=== PATIENT | female | born 1970 | race Caucasian/White ===

== ENCOUNTER 2022-07-14 12:58 | Inpatient (IN) | payer OTHER ==
[~2022-07-14] VITALS: Ht 165.1 cm; Wt 66.8 kg
[~2022-07-14 12:58] MED LIST: ASPI-1450 PO; BENZ-70 PO; BUDE10.27 IH; HYDR25TA2 PO; IPRA4AER IH; PANT-31 PO; PRED-554 PO
[2022-07-14] MEDS ORDERED: VANCOMYCIN 1GM/WATER(PEG/NADA) 200 ML IV ONE (13:45)
[2022-07-14] MEDS ORDERED: SODIUM CHLORIDE 0.9% 1,000 ML IV ONE (13:45)
[2022-07-14] MEDS ORDERED: HYDR-3831 PO (13:47)
[2022-07-14] MEDS ORDERED: FLUT1BLS9 IH (13:47)
[2022-07-14] MEDS ORDERED: VANCOMYCIN HCL 1 GM in DEXTROSE 5%-WATER 250 ML IV ONE (14:00)
[2022-07-14] MEDS ORDERED: MAGNESIUM HYDROXIDE SUSPENSION 30 ML UDCUP PO PRN (14:45)
[2022-07-14] MEDS: MORPHINE SULFATE 2 MG/ML SYRINGE IVP PRN ×2 (14:45→23:12)
[2022-07-14] MEDS ORDERED: ALBUTEROL SULFATE 2.5 MG/0.5 ML NEB SOLUTION NEB PRN (14:45)
[2022-07-14 15:22] LABS: BASOPHILS % (AUTO) 0.3 % (0.0-2.0); EOSINOPHILS % (AUTO) 1.2 % (1.0-6.0); HEMATOCRIT 37.3 % (36-46); HEMOGLOBIN 12.2 g/dL (12.0-16.0); LYMPHOCYTES # (AUTO) 1.4 K/uL (1.0-4.8); LYMPHOCYTES % (AUTO) 16.1 % (22.0-44.0); MEAN CORPUSCULAR HEMOGLOBIN 28.2 pg (26.0-34.0); MEAN CORPUSCULAR HGB CONC 32.6 G/dL (31.0-37.0); MEAN CORPUSCULAR VOLUME 86 fL (80-100); MONOCYTES # (AUTO) 1.1 K/uL (0.1-1.0); MONOCYTES % (AUTO) 13.3 % (2.0-9.0); NEUTROPHILS % (AUTO) 69.1 % (40.0-70.0); PLATELET COUNT (AUTO) 190 K/uL (150-450); RED BLOOD CELL COUNT(AUTO) 4.32 MIL/uL (4.00-5.20); RED CELL DISTRIBUTION WIDTH 15.8 % (11.5-14.5)
[2022-07-14 15:42] LABS: CALCIUM, TOTAL 8.4 mg/dL (8.8-10.5); CREATININE 1.03 mg/dL (0.60-1.30); POTASSIUM 3.4 mmol/L (3.5-5.1)
[2022-07-14 15:47] LABS: ALBUMIN 3.3 g/dL (3.4-5.0); BILIRUBIN,TOTAL 0.4 mg/dL (0.1-1.0); TOTAL PROTEIN, SERUM 6.7 g/dL (6.4-8.2)
[2022-07-14 15:51] LABS: LACTIC ACID 1.1 mmol/L (0.4-2.0)
[2022-07-14] MEDS: HYDROCODONE/ACETAMINOPHEN 5-325 MG TABLET PO PRN ×2 (15:51→20:05)
[2022-07-14] MEDS ORDERED: SODIUM CHLORIDE 0.9% 100 ML ONE (16:07)
[2022-07-14] MEDS ORDERED: IOHEXOL 350 MG/ML 100 ML VIAL ONE (16:08)
[2022-07-14 18:10] VITALS: BP 154/101
[2022-07-14] MEDS ORDERED: SODIUM CHLORIDE 0.9% 500 ML IV ONE (18:17)
[2022-07-14] MEDS: PIPERACILLIN/TAZO 3.375 GM/D5W 50 ML IV SCH ×2 (18:33→23:12)
[2022-07-14 20:00] VITALS: BP 169/99
[2022-07-14] MEDS: DOCUSATE SODIUM 100 MG CAPSULE PO SCH (20:03)
[2022-07-15] MEDS: HYDROCODONE/ACETAMINOPHEN 5-325 MG TABLET PO PRN ×5 (02:27→21:34)
[2022-07-15 04:53] VITALS: BP 135/92
[2022-07-15] MEDS: PIPERACILLIN/TAZO 3.375 GM/D5W 50 ML IV SCH ×4 (05:33→23:32)
[2022-07-15] MEDS: MORPHINE SULFATE 2 MG/ML SYRINGE IVP PRN ×2 (05:33→23:39)
[2022-07-15 07:07] LABS: ANION GAP 9 mmol/L (8-16); CALCIUM, TOTAL 8.1 mg/dL (8.8-10.5); CARBON DIOXIDE 28 mmol/L (22-29); CHLORIDE 102 mmol/L (98-107); CREATININE 0.77 mg/dL (0.60-1.30); GLUCOSE,RANDOM 101 mg/dL (70-110); POTASSIUM 3.5 mmol/L (3.5-5.1); SODIUM SERUM 139 mmol/L (136-145); UREA NITROGEN, BLOOD 5 mg/dL (7-18)
[2022-07-15 07:08] LABS: GLOMERULAR FILTR. RATE CALC > 60 mL/min (>60)
[2022-07-15 08:00] VITALS: BP_SYST 155; BP_SYST 156; BP_DIAS 84; BP_DIAS 97
[2022-07-15] MEDS: DOCUSATE SODIUM 100 MG CAPSULE PO SCH ×2 (08:44→19:49)
[2022-07-15] MEDS: VANCOMYCIN HCL 750 MG in DEXTROSE 5%-WATER 250 ML IV SCH ×2 (08:44→19:49)
[2022-07-15] MEDS: FAMOTIDINE 20 MG TABLET PO SCH (08:44)
[2022-07-15] MEDS: ONDANSETRON HCL 4 MG/2 ML VIAL IVP PRN (11:03)
[2022-07-15 12:24] LABS: C-REACTIVE PROTEIN QUANT 12.19 mg/dL (0.00-0.30)
[2022-07-15] MEDS ORDERED: GADOTERATE MEGLUMINE 10 MMOL/20 ML VIAL IVP ONE (14:12)
[2022-07-15] MEDS: CLINDAMYCIN 900 MG/D5% WATER 50 ML IV SCH ×2 (14:44→21:34)
[2022-07-15 16:00] VITALS: BP 155/90
[2022-07-15 19:40] VITALS: BP 131/78
[2022-07-15] MEDS: ZOLPIDEM TARTRATE 5 MG TABLET PO PRN (19:49)
[2022-07-16 04:27] VITALS: BP 140/77
[2022-07-16] MEDS: HYDROCODONE/ACETAMINOPHEN 5-325 MG TABLET PO PRN ×5 (04:36→23:05)
[2022-07-16] MEDS: CLINDAMYCIN 900 MG/D5% WATER 50 ML IV SCH ×3 (04:36→20:44)
[2022-07-16] MEDS: PIPERACILLIN/TAZO 3.375 GM/D5W 50 ML IV SCH ×4 (05:45→23:05)
[2022-07-16 07:06] LABS: PROTHROMBIN TIME 10.3 SEC (9.4-11.6)
[2022-07-16 07:09] LABS: BASOPHILS % (AUTO) 0.5 % (0.0-2.0); EOSINOPHILS % (AUTO) 1.7 % (1.0-6.0); HEMATOCRIT 30.8 % (36-46); HEMOGLOBIN 10.3 g/dL (12.0-16.0); LYMPHOCYTES # (AUTO) 1.5 K/uL (1.0-4.8); LYMPHOCYTES % (AUTO) 18.9 % (22.0-44.0); MEAN CORPUSCULAR HEMOGLOBIN 28.7 pg (26.0-34.0); MEAN CORPUSCULAR HGB CONC 33.2 G/dL (31.0-37.0); MEAN CORPUSCULAR VOLUME 86 fL (80-100); MONOCYTES # (AUTO) 1.2 K/uL (0.1-1.0); MONOCYTES % (AUTO) 14.5 % (2.0-9.0); NEUTROPHILS # (AUTO) 5.2 K/uL (1.8-7.7); NEUTROPHILS % (AUTO) 64.4 % (40.0-70.0); PLATELET COUNT (AUTO) 211 K/uL (150-450); RED BLOOD CELL COUNT(AUTO) 3.58 MIL/uL (4.00-5.20); RED CELL DISTRIBUTION WIDTH 16.2 % (11.5-14.5)
[2022-07-16 07:27] LABS: ANION GAP 3 mmol/L (8-16); CALCIUM, TOTAL 8.4 mg/dL (8.8-10.5); CARBON DIOXIDE 31 mmol/L (22-29); CHLORIDE 100 mmol/L (98-107); CREATININE 0.95 mg/dL (0.60-1.30); GLUCOSE,RANDOM 111 mg/dL (70-110); POTASSIUM 3.7 mmol/L (3.5-5.1); SODIUM SERUM 134 mmol/L (136-145); UREA NITROGEN, BLOOD 6 mg/dL (7-18); VANCOMYCIN,RANDOM 7.8 mcg/mL (25.0-50.0)
[2022-07-16 07:30] LABS: GLOMERULAR FILTR. RATE CALC > 60 mL/min (>60)
[2022-07-16 07:43] VITALS: BP 119/71
[2022-07-16] MEDS: VANCOMYCIN HCL 750 MG in DEXTROSE 5%-WATER 250 ML IV SCH ×2 (08:28→15:44)
[2022-07-16] MEDS: DOCUSATE SODIUM 100 MG CAPSULE PO SCH ×2 (08:29→20:45)
[2022-07-16] MEDS: FAMOTIDINE 20 MG TABLET PO SCH (08:29)
[2022-07-16 15:24] VITALS: BP 122/74
[2022-07-16] MEDS: ONDANSETRON HCL 4 MG/2 ML VIAL IVP PRN (15:50)
[2022-07-16 19:25] VITALS: BP 143/88
[2022-07-16] MEDS: ZOLPIDEM TARTRATE 5 MG TABLET PO PRN (20:44)
[2022-07-17] MEDS: VANCOMYCIN HCL 750 MG in DEXTROSE 5%-WATER 250 ML IV SCH ×4 (00:07→23:24)
[2022-07-17] MEDS: HYDROCODONE/ACETAMINOPHEN 5-325 MG TABLET PO PRN ×5 (03:18→23:29)
[2022-07-17] MEDS: CLINDAMYCIN 900 MG/D5% WATER 50 ML IV SCH ×2 (04:26→13:05)
[2022-07-17 05:24] VITALS: BP 121/70
[2022-07-17] MEDS: PIPERACILLIN/TAZO 3.375 GM/D5W 50 ML IV SCH ×4 (05:35→23:24)
[2022-07-17 05:52] LABS: ANION GAP 1 mmol/L (8-16); C-REACTIVE PROTEIN QUANT 9.68 mg/dL (0.00-0.30); CALCIUM, TOTAL 8.4 mg/dL (8.8-10.5); CARBON DIOXIDE 33 mmol/L (22-29); CHLORIDE 102 mmol/L (98-107); CREATININE 0.93 mg/dL (0.60-1.30); GLUCOSE,RANDOM 105 mg/dL (70-110); POTASSIUM 3.7 mmol/L (3.5-5.1); SODIUM SERUM 136 mmol/L (136-145); UREA NITROGEN, BLOOD 7 mg/dL (7-18)
[2022-07-17 05:58] LABS: GLOMERULAR FILTR. RATE CALC > 60 mL/min (>60)
[2022-07-17] MEDS: FAMOTIDINE 20 MG TABLET PO SCH (08:13)
[2022-07-17] MEDS: DOCUSATE SODIUM 100 MG CAPSULE PO SCH ×2 (08:14→20:09)
[2022-07-17] MEDS ORDERED: SODIUM CHLORIDE 0.9% 250 ML IV ONE (10:59)
[2022-07-17 15:57] VITALS: BP 136/76
[2022-07-17 19:40] VITALS: BP 130/78
[2022-07-17] MEDS: ETHYL ALCOHOL 62% ANTISEPTIC NASAL SANITIZER 0.6 ML AMPUL NASAL SCH (20:09)
[2022-07-18] MEDS ORDERED: SODIUM CHLORIDE 0.9% 250 ML IV ONE (04:05)
[2022-07-18] MEDS: HYDROCODONE/ACETAMINOPHEN 5-325 MG TABLET PO PRN ×4 (04:08→20:08)
[2022-07-18 04:20] VITALS: BP 140/83
[2022-07-18] MEDS: PIPERACILLIN/TAZO 3.375 GM/D5W 50 ML IV SCH ×4 (05:13→23:37)
[2022-07-18 07:04] LABS: ANION GAP 4 mmol/L (8-16); C-REACTIVE PROTEIN QUANT 5.42 mg/dL (0.00-0.30); CALCIUM, TOTAL 8.6 mg/dL (8.8-10.5); CARBON DIOXIDE 31 mmol/L (22-29); CHLORIDE 103 mmol/L (98-107); CREATININE 0.92 mg/dL (0.60-1.30); GLUCOSE,RANDOM 93 mg/dL (70-110); SODIUM SERUM 138 mmol/L (136-145); UREA NITROGEN, BLOOD 9 mg/dL (7-18); VANCOMYCIN,RANDOM 21.1 mcg/mL (25.0-50.0)
[2022-07-18 07:05] LABS: GLOMERULAR FILTR. RATE CALC > 60 mL/min (>60)
[2022-07-18 07:37] VITALS: BP 126/87
[2022-07-18] MEDS: FAMOTIDINE 20 MG TABLET PO SCH (08:13)
[2022-07-18] MEDS: ETHYL ALCOHOL 62% ANTISEPTIC NASAL SANITIZER 0.6 ML AMPUL NASAL SCH ×2 (08:13→20:04)
[2022-07-18] MEDS: DOCUSATE SODIUM 100 MG CAPSULE PO SCH ×2 (08:13→20:04)
[2022-07-18] MEDS: VANCOMYCIN HCL 750 MG in DEXTROSE 5%-WATER 250 ML IV SCH ×2 (08:15→15:05)
[2022-07-18] MEDS ORDERED: 0.9% SODIUM CHLORIDE 5 ML NEB SOLUTION NEB ONE (15:17)
[2022-07-18 15:23] VITALS: BP 170/99
[2022-07-18] MEDS ORDERED: SODIUM CHLORIDE 0.9% 500 ML IV ONE ×2 (17:39→22:31)
[2022-07-18 19:15] VITALS: BP 152/86
[2022-07-19] MEDS: VANCOMYCIN HCL 750 MG in DEXTROSE 5%-WATER 250 ML IV SCH ×3 (00:18→15:49)
[2022-07-19] MEDS: ZOLPIDEM TARTRATE 5 MG TABLET PO PRN ×2 (00:57→20:07)
[2022-07-19 05:10] VITALS: BP 165/103
[2022-07-19] MEDS: PIPERACILLIN/TAZO 3.375 GM/D5W 50 ML IV SCH ×4 (06:06→23:12)
[2022-07-19] MEDS: HYDROCODONE/ACETAMINOPHEN 5-325 MG TABLET PO PRN ×4 (06:07→15:51)
[2022-07-19 07:16] LABS: ANION GAP 5 mmol/L (8-16); CALCIUM, TOTAL 8.7 mg/dL (8.8-10.5); CARBON DIOXIDE 27 mmol/L (22-29); CHLORIDE 103 mmol/L (98-107); CREATININE 0.81 mg/dL (0.60-1.30); GLOMERULAR FILTR. RATE CALC > 60 mL/min (>60); GLUCOSE,RANDOM 100 mg/dL (70-110); POTASSIUM 3.7 mmol/L (3.5-5.1); SODIUM SERUM 135 mmol/L (136-145); UREA NITROGEN, BLOOD 7 mg/dL (7-18)
[2022-07-19 07:30] VITALS: BP 176/110
[2022-07-19] MEDS: ETHYL ALCOHOL 62% ANTISEPTIC NASAL SANITIZER 0.6 ML AMPUL NASAL SCH ×2 (08:24→20:07)
[2022-07-19] MEDS: FAMOTIDINE 20 MG TABLET PO SCH (08:24)
[2022-07-19] MEDS: DOCUSATE SODIUM 100 MG CAPSULE PO SCH ×2 (08:25→20:07)
[2022-07-19] MEDS: AmLODIPine BESYLATE 5 MG TABLET PO SCH (11:10)
[2022-07-19 15:18] VITALS: BP 149/90
[2022-07-19 19:50] VITALS: BP 139/89
[2022-07-20] MEDS: VANCOMYCIN HCL 750 MG in DEXTROSE 5%-WATER 250 ML IV SCH ×3 (00:12→16:30)
[2022-07-20] MEDS: HYDROCODONE/ACETAMINOPHEN 5-325 MG TABLET PO PRN ×3 (03:22→19:55)
[2022-07-20 05:00] VITALS: BP 161/102
[2022-07-20] MEDS: PIPERACILLIN/TAZO 3.375 GM/D5W 50 ML IV SCH ×4 (05:49→23:39)
[2022-07-20 06:22] LABS: ANION GAP 4 mmol/L (8-16); C-REACTIVE PROTEIN QUANT 1.94 mg/dL (0.00-0.30); CALCIUM, TOTAL 8.7 mg/dL (8.8-10.5); CARBON DIOXIDE 29 mmol/L (22-29); CHLORIDE 103 mmol/L (98-107); CREATININE 0.87 mg/dL (0.60-1.30); GLUCOSE,RANDOM 96 mg/dL (70-110); POTASSIUM 3.9 mmol/L (3.5-5.1); SODIUM SERUM 136 mmol/L (136-145); UREA NITROGEN, BLOOD 11 mg/dL (7-18)
[2022-07-20 06:24] LABS: GLOMERULAR FILTR. RATE CALC > 60 mL/min (>60)
[2022-07-20 08:11] VITALS: BP 156/96
[2022-07-20] MEDS: FAMOTIDINE 20 MG TABLET PO SCH (08:17)
[2022-07-20] MEDS: ETHYL ALCOHOL 62% ANTISEPTIC NASAL SANITIZER 0.6 ML AMPUL NASAL SCH ×2 (08:17→19:55)
[2022-07-20] MEDS: AmLODIPine BESYLATE 5 MG TABLET PO SCH (08:17)
[2022-07-20] MEDS: DOCUSATE SODIUM 100 MG CAPSULE PO SCH ×2 (08:18→19:55)
[2022-07-20] MEDS: ACETAMINOPHEN 325 MG TABLET PO PRN (08:19)
[2022-07-20] MEDS ORDERED: SODIUM CHLORIDE 0.9% 250 ML IV ONE (08:26)
[2022-07-20] MEDS: ONDANSETRON HCL 4 MG/2 ML VIAL IVP PRN (15:04)
[2022-07-20 16:02] VITALS: BP 137/87
[2022-07-20 19:47] VITALS: BP 160/96
[2022-07-20] MEDS: ZOLPIDEM TARTRATE 5 MG TABLET PO PRN (23:43)
[2022-07-21] MEDS: VANCOMYCIN HCL 750 MG in DEXTROSE 5%-WATER 250 ML IV SCH ×2 (00:26→08:37)
[2022-07-21] MEDS: ACETAMINOPHEN 325 MG TABLET PO PRN (03:09)
[2022-07-21 05:16] VITALS: BP 139/92
[2022-07-21] MEDS: PIPERACILLIN/TAZO 3.375 GM/D5W 50 ML IV SCH (05:43)
[2022-07-21 07:12] LABS: ANION GAP 5 mmol/L (8-16); CALCIUM, TOTAL 8.2 mg/dL (8.8-10.5); CARBON DIOXIDE 26 mmol/L (22-29); CHLORIDE 106 mmol/L (98-107); CREATININE 0.83 mg/dL (0.60-1.30); GLUCOSE,RANDOM 88 mg/dL (70-110); POTASSIUM 3.4 mmol/L (3.5-5.1); SODIUM SERUM 137 mmol/L (136-145); UREA NITROGEN, BLOOD 10 mg/dL (7-18); VANCOMYCIN,RANDOM 21.6 mcg/mL (25.0-50.0)
[2022-07-21 07:13] LABS: GLOMERULAR FILTR. RATE CALC > 60 mL/min (>60)
[2022-07-21 07:31] VITALS: BP 137/92
[2022-07-21] MEDS: ETHYL ALCOHOL 62% ANTISEPTIC NASAL SANITIZER 0.6 ML AMPUL NASAL SCH (08:37)
[2022-07-21] MEDS: FAMOTIDINE 20 MG TABLET PO SCH (08:37)
[2022-07-21] MEDS: AmLODIPine BESYLATE 5 MG TABLET PO SCH (08:37)
[2022-07-21] MEDS: DOCUSATE SODIUM 100 MG CAPSULE PO SCH (08:44)
[2022-07-21] MEDS ORDERED: ACET-784 PO (11:59)
== END 2022-07-21 14:55 | DRG 603 ==
LOC: EMS 12:58 → 6S 16:54
PROVIDERS: ADMIT Internal Medicine; ATTEND Internal Medicine
DX: L03.211 Cellulitis of face (principal); J01.40 Acute pansinusitis, unspecified; J45.909 Unspecified asthma, uncomplicated; J34.0 Abscess, furuncle and carbuncle of nose; I10 Essential (primary) hypertension; Z79.899 Other long term (current) drug therapy; Z88.8 Allergy status to other drugs, medicaments and biological substances; Y92.89 Other specified places as the place of occurrence of the external cause; Z79.82 Long term (current) use of aspirin; A49.02 Methicillin resistant Staphylococcus aureus infection, unspecified site; T36.8X5A Adverse effect of other systemic antibiotics, initial encounter
CPT/HCPCS: 70487; 70543; 80048; 80053; 80202; 83605; 84145; 84703; 85025; 85610; 86140; 87040; 87070; 87081; 87186; 87205; 93971; 94640; 99285; J2270; J2405; J2543; J3370; J3490; J7030; J7040; J7050; J7060; Q9967

== ENCOUNTER 2025-01-27 00:14 | Inpatient (IN) | payer OTHER ==
[~2025-01-27] VITALS: Ht 162.6 cm; Wt 100.4 kg
[~2025-01-27 00:14] MED LIST changes: +ACET-784 PO; +BENZ-227 PO; -BENZ-70 PO; -BUDE10.27 IH; +FLUT1BLS19 IH; +HYDR-3831 PO; -PRED-554 PO
[2025-01-27 01:24] LABS: ANION GAP 9 mmol/L (8-16); CARBON DIOXIDE 30 mmol/L (22-29); CHLORIDE 98 mmol/L (98-107); GLUCOSE,RANDOM 98 mg/dL (70-110); POTASSIUM 3.3 mmol/L (3.5-5.1); SODIUM SERUM 137 mmol/L (136-145); UREA NITROGEN, BLOOD 16 mg/dL (7-18)
[2025-01-27 01:25] LABS: CALCIUM, TOTAL 8.4 mg/dL (8.8-10.5); GLOMERULAR FILTR. RATE CALC > 60 mL/min (>60)
[2025-01-27 01:31] LABS: BASOPHILS % (AUTO) 0.5 % (0.0-2.0); EOSINOPHILS % (AUTO) 9.9 % (1.0-6.0); HEMATOCRIT 38.9 % (36-46); HEMOGLOBIN 12.8 g/dL (12.0-16.0); LYMPHOCYTES # (AUTO) 2.1 K/uL (1.0-4.8); LYMPHOCYTES % (AUTO) 26.2 % (22.0-44.0); MEAN CORPUSCULAR HEMOGLOBIN 26.5 pg (26.0-34.0); MEAN CORPUSCULAR HGB CONC 32.8 G/dL (31.0-37.0); MEAN CORPUSCULAR VOLUME 81 fL (80-100); MONOCYTES # (AUTO) 0.7 K/uL (0.1-1.0); MONOCYTES % (AUTO) 8.9 % (2.0-9.0); NEUTROPHILS # (AUTO) 4.4 K/uL (1.8-7.7); NEUTROPHILS % (AUTO) 54.5 % (40.0-70.0); PLATELET COUNT (AUTO) 323 K/uL (150-450); RED BLOOD CELL COUNT(AUTO) 4.83 MIL/uL (4.00-5.20); RED CELL DISTRIBUTION WIDTH 14.7 % (11.5-14.5); WHITE BLOOD COUNT (AUTO) 8.1 K/uL (4.5-11.0)
[2025-01-27] MEDS ORDERED: ONDANSETRON HCL 4 MG/2 ML VIAL IVP PRN (02:30)
[2025-01-27] MEDS ORDERED: ALBUTEROL SULFATE 2.5 MG/0.5 ML NEB SOLUTION NEB PRN (02:30)
[2025-01-27] MEDS ORDERED: IPRATROPIUM BROMIDE 0.5 MG/2.5 ML NEB SOLUTION NEB PRN (02:30)
[2025-01-27] MEDS: POTASSIUM CHLORIDE 20 MEQ ER TABLET PO ONE (03:10)
[2025-01-27 06:46] VITALS: BP 149/90; PULSE 72; RESP 20; TEMP 98.2; O2SAT 96
[2025-01-27 08:00] VITALS: BP 131/82; PULSE 69; RESP 16; TEMP 98.4; O2SAT 97
[2025-01-27] MEDS: HEPARIN SODIUM,PORCINE 5,000 UNITS/ML VIAL SQ SCH (09:35)
[2025-01-27 12:00] VITALS: BP 135/79; PULSE 71; RESP 16; TEMP 98.1; O2SAT 98
[2025-01-27] MEDS ORDERED: SODIUM CHLORIDE 3% 15 ML NEB SOLUTION NEB ONE ×2 (14:21→23:58)
[2025-01-27 16:00] VITALS: BP 132/102; PULSE 71; RESP 16; TEMP 98.6; O2SAT 95
[2025-01-27] MEDS: ACETAMINOPHEN 325 MG TABLET PO PRN (19:03)
[2025-01-27 19:46] LABS: MTB PCR w/Rif. Resistance-SPUT NOT DETECTED (Not Detectd)
[2025-01-27 20:00] VITALS: BP 125/77; PULSE 70; RESP 18; TEMP 98.2; O2SAT 97
[2025-01-28] VITALS: BP 121/66; PULSE 68; RESP 18; TEMP 98.1; O2SAT 97
[2025-01-28] MEDS ORDERED: POTASSIUM CHL 10 MEQ/WATER 50 ML IV PRN (01:15)
[2025-01-28] MEDS: POTASSIUM CHLORIDE 20 MEQ ER TABLET PO PRN (01:18)
[2025-01-28 04:00] VITALS: BP 131/81; PULSE 64; RESP 18; TEMP 97.9; O2SAT 98
[2025-01-28 06:47] LABS: ANION GAP 10 mmol/L (8-16); CALCIUM, TOTAL 8.3 mg/dL (8.8-10.5); CARBON DIOXIDE 28 mmol/L (22-29); CHLORIDE 104 mmol/L (98-107); CREATININE 0.84 mg/dL (0.60-1.30); GLOMERULAR FILTR. RATE CALC > 60 mL/min (>60); GLUCOSE,RANDOM 117 mg/dL (70-110); POTASSIUM 3.3 mmol/L (3.5-5.1); SODIUM SERUM 142 mmol/L (136-145); UREA NITROGEN, BLOOD 18 mg/dL (7-18)
[2025-01-28 06:48] LABS: BASOPHILS % (AUTO) 1.1 % (0.0-2.0); EOSINOPHILS % (AUTO) 13.6 % (1.0-6.0); HEMATOCRIT 36.9 % (36-46); HEMOGLOBIN 12.5 g/dL (12.0-16.0); LYMPHOCYTES # (AUTO) 1.9 K/uL (1.0-4.8); LYMPHOCYTES % (AUTO) 27.2 % (22.0-44.0); MEAN CORPUSCULAR HEMOGLOBIN 27.5 pg (26.0-34.0); MEAN CORPUSCULAR HGB CONC 33.8 G/dL (31.0-37.0); MEAN CORPUSCULAR VOLUME 81 fL (80-100); MONOCYTES # (AUTO) 0.8 K/uL (0.1-1.0); MONOCYTES % (AUTO) 10.9 % (2.0-9.0); NEUTROPHILS # (AUTO) 3.3 K/uL (1.8-7.7); NEUTROPHILS % (AUTO) 47.2 % (40.0-70.0); PLATELET COUNT (AUTO) 282 K/uL (150-450); RED BLOOD CELL COUNT(AUTO) 4.54 MIL/uL (4.00-5.20); RED CELL DISTRIBUTION WIDTH 14.4 % (11.5-14.5); WHITE BLOOD COUNT (AUTO) 6.9 K/uL (4.5-11.0)
[2025-01-28] MEDS ORDERED: MAGNESIUM SULFATE 2 GM/WATER 50 ML IV PRN (13:00)
[2025-01-28] MEDS ORDERED: MAGNESIUM OXIDE 400 MG TABLET PO PRN (13:00)
[2025-01-28] MEDS ORDERED: MAGNESIUM SULFATE 4 GM/WATER 100 ML IV PRN (13:00)
[2025-01-28 15:44] VITALS: BP 150/91; PULSE 77; RESP 18; TEMP 98.2; O2SAT 98
[2025-01-28 19:46] VITALS: BP 156/85; PULSE 85; RESP 18; TEMP 97.9; O2SAT 92
[2025-01-28] MEDS: CETIRIZINE HCL 10 MG TABLET PO SCH (22:30)
[2025-01-28] MEDS: hydroCHLOROthiazide 25 MG TABLET PO SCH (22:30)
[2025-01-29] MEDS: ZOLPIDEM TARTRATE 5 MG TABLET PO PRN (00:05)
[2025-01-29 00:07] VITALS: BP 144/75; PULSE 71; RESP 18; TEMP 97.9; O2SAT 94
[2025-01-29 04:46] VITALS: BP 139/85; PULSE 61; RESP 18; TEMP 98.2; O2SAT 97
[2025-01-29 07:18] LABS: ANION GAP 5 mmol/L (8-16); CALCIUM, TOTAL 8.4 mg/dL (8.8-10.5); CARBON DIOXIDE 30 mmol/L (22-29); CHLORIDE 103 mmol/L (98-107); GLOMERULAR FILTR. RATE CALC > 60 mL/min (>60); GLUCOSE,RANDOM 87 mg/dL (70-110); POTASSIUM 3.6 mmol/L (3.5-5.1); SODIUM SERUM 138 mmol/L (136-145); UREA NITROGEN, BLOOD 11 mg/dL (7-18)
[2025-01-29 07:24] VITALS: BP 126/67; PULSE 61; RESP 20; TEMP 97.9; O2SAT 97
[2025-01-29 15:15] VITALS: BP 130/72; PULSE 64; RESP 18; TEMP 98.1; O2SAT 96
[2025-01-29 16:44] LABS: MTB PCR w/Rif. Resistance-SPUT NOT DETECTED (Not Detectd)
[2025-01-29] MEDS: FLUTICASONE PROPIONATE 50 MCG/SPRAY 16 GM NASAL SPRAY NASAL SCH (20:24)
[2025-01-29 20:26] VITALS: BP 115/68; PULSE 63; RESP 18; TEMP 98.4; O2SAT 95
[2025-01-30 03:37] LABS: QUANTIFERON+, Nil Value 0.02 IU/mL; QUANTIFERON+,Mitogen Value >10.00 IU/mL; QUANTIFERON+,TB1 Antigen Value 0.03 IU/mL; QUANTIFERON+,TB2 Antigen Value 0.04 IU/mL; QUANTIFERON, TB GOLD PLUS Negative (Negative)
[2025-01-30 06:03] VITALS: BP 111/59; PULSE 60; RESP 18; TEMP 97.9; O2SAT 97
[2025-01-30 08:04] VITALS: BP 117/79; PULSE 59; RESP 20; TEMP 98.1; O2SAT 98
[2025-01-30 16:21] VITALS: BP 124/80; PULSE 69; RESP 20; TEMP 98.1; O2SAT 98
[2025-01-30 19:48] VITALS: BP 102/64; PULSE 74; RESP 18; TEMP 97.9; O2SAT 97
[2025-01-31 04:46] VITALS: BP 106/60; PULSE 62; RESP 18; TEMP 97.9; O2SAT 98
[2025-01-31 07:30] VITALS: BP 124/75; PULSE 63; RESP 19; TEMP 97.9; O2SAT 96
[2025-01-31] MEDS ORDERED: MEDR2.5T6 PO (13:11)
[2025-01-31] MEDS ORDERED: MONT-35 PO (13:11)
[2025-01-31] MEDS ORDERED: ESCI-8 PO (13:11)
[2025-01-31] MEDS ORDERED: ESTR1TAB17 PO (13:11)
[2025-01-31] MEDS: HydrOXYzine PAMOATE 50 MG CAPSULE PO ONE (14:21)
[2025-01-31] MEDS: ESCITALOPRAM OXALATE 10 MG TABLET PO ONE (14:21)
[2025-01-31] MEDS: BENZONATATE 100 MG CAPSULE PO SCH (16:14)
[2025-01-31] MEDS: ALBUTEROL SULFATE/IPRATROPIUM 100-20 MCG/SPRAY 4 GM INHALER IH SCH (16:14)
[2025-01-31 20:00] VITALS: BP 108/65; PULSE 71; RESP 18; TEMP 98.2; O2SAT 97
[2025-01-31] MEDS: HydrOXYzine PAMOATE 50 MG CAPSULE PO SCH (20:49)
[2025-01-31] MEDS: MONTELUKAST SODIUM 10 MG TABLET PO SCH (20:49)
[2025-01-31] MEDS: estradioL 1 MG TABLET PO SCH (20:49)
[2025-01-31] MEDS: FLUTICASONE/SALMETEROL 250-50 MCG/INH INHALER [60] IH SCH (20:53)
[2025-01-31] MEDS ORDERED: HydrOXYzine HCL 25 MG TABLET PO SCH (21:00)
[2025-02-01 04:24] VITALS: BP 106/58; PULSE 62; RESP 18; TEMP 97.7; O2SAT 95
[2025-02-01 07:49] VITALS: BP 120/77; PULSE 66; RESP 18; TEMP 97.9; O2SAT 98
[2025-02-01] MEDS: ESCITALOPRAM OXALATE 10 MG TABLET PO SCH (08:09)
[2025-02-01] MEDS: hydroCHLOROthiazide 25 MG TABLET PO SCH (08:09)
[2025-02-01] MEDS: ASPIRIN 81 MG CHEWABLE TABLET PO SCH (08:09)
[2025-02-01] MEDS: PANTOPRAZOLE SODIUM 40 MG DR TABLET PO SCH (08:09)
[2025-02-01] MEDS ORDERED: ESCITALOPRAM OXALATE 10 MG TABLET PO SCH (09:00)
[2025-02-01 15:35] VITALS: BP 129/73; PULSE 75; RESP 20; TEMP 98.2; O2SAT 98
== END 2025-02-01 19:57 | DRG 179 ==
LOC: EMS 00:21 → EDH 05:13 → 5N 05:13 → UNDOADMIN 05:13 → 5N 06:17 → 4E 01-29 05:34
PROVIDERS: ADMIT Internal Medicine; ATTEND Internal Medicine
DX: A15.9 Respiratory tuberculosis unspecified (principal); F15.10 Other stimulant abuse, uncomplicated; I10 Essential (primary) hypertension; J45.909 Unspecified asthma, uncomplicated; E87.6 Hypokalemia; Z87.01 Personal history of pneumonia (recurrent); Z88.1 Allergy status to other antibiotic agents
CPT/HCPCS: 71045; 71250; 80048; 82040; 83735; 83880; 84132; 85025; 86480; 87015; 87206; 87389; 87556; 94640; 99285; G0378; J1644; J3535; 36415-L1; 36415-TC